=== PATIENT | female | born 1955 | race Caucasian/White ===

== ENCOUNTER 2017-11-09 07:44 | Day surgery (SDC) | payer BC ==
[~2017-11-09] VITALS: Ht 180.3 cm; Wt 170.1 kg
[~2017-11-09 07:44] MED LIST: COQ-10100 MG PO; ELIQUIS5 MG PO; ERGOCALCIF50000 UNIT PO; FISH OIL 1,0001 EAC7 PO; FLEXERIL10 MG PO; IRBESARTAN300 MG PO; LASIX40 MG PO; LOPRESSOR100 M1 PO; LOPRESSOR50 MG PO; PHENOBARBITAL30 MG PO; PHENOBARBITAL60 MG PO; SYNTHROID150 MCG PO; TRULICITY1.5 MG/0.5 SC; TYLENOL ARTHRI650 MG PO; ZOLADEX3.6 MG SC; ZYRTEC10 M3 PO
[2017-11-09 08:47] LABS: HEMATOCRIT 42.1 % (36.0-46.0); HEMOGLOBIN 14.4 G/DL (11.9-15.5); MCH 32.5 PG (29.0-34.0); MCHC 34.2 G/DL (30.0-36.0); PLATELET COUNT 199 K/uL (156-360); RBC DIS.WIDTH-CV 12.7 % (11.8-14.6); RBC DIS.WIDTH-SD 44.6 % (39-53); RED BLOOD COUNT 4.43 M/uL (3.80-5.20); WHITE BLOOD COUNT 6.5 K/uL (4.1-10.2)
[2017-11-09 09:21] LABS: CHLORIDE 101 MEQ/L (99-109); CREATININE 0.5 MG/DL (0.6-1.3); GFR ESTIMATE (CALCULATED) > 59 mL/min/; GLUCOSE 91 mg/dL (70-99); POTASSIUM 4.6 MEQ/L (3.7-5.4); SODIUM 136 MEQ/L (136-147); UREA NITROGEN (BUN) 15 mg/dL (9-23)
[2017-11-09] MEDS ORDERED: CARDIZEM30 MG PO (14:39)
== END 2017-11-09 16:15 | disposition home or self-care (01) ==
LOC: CATH 07:44
PROVIDERS: Internal Medicine Cardiovascular Disease
PROC: B2111ZZ Fluoroscopy of Multiple Coronary Arteries using Low Osmolar Contrast (ICD-10-PCS; principal; 2017-11-09)
PROC: 4A023N7 Measurement of Cardiac Sampling and Pressure, Left Heart, Percutaneous Approach (ICD-10-PCS; principal; 2017-11-09)
PROC: B2151ZZ Fluoroscopy of Left Heart using Low Osmolar Contrast (ICD-10-PCS; principal; 2017-11-09)
DX: I25.10 Atherosclerotic heart disease of native coronary artery without angina pectoris (principal); I51.7 Cardiomegaly; I10 Essential (primary) hypertension; E78.5 Hyperlipidemia, unspecified; R73.03 Prediabetes; E66.01 Morbid (severe) obesity due to excess calories; Z68.43 Body mass index [BMI] 50.0-59.9, adult; I48.0 Paroxysmal atrial fibrillation; E03.9 Hypothyroidism, unspecified
CPT/HCPCS: 80048; 85027; 93005; C1769; C1887; J1644; J2250; J3010